=== PATIENT | female | born 1990 | race Caucasian/White ===

== ENCOUNTER 2016-12-05 09:19 | Emergency (ER) | payer MEDICAID ==
[~2016-12-05] VITALS: Ht 162.6 cm; Wt 100.0 kg
[~2016-12-05 09:19] MED LIST: FERR-43 PO; FOLI-43 PO; PREN-88 PO
[2016-12-05] MEDS ORDERED: KETOROLAC 30MG/ML VIAL IV STA (10:41)
[2016-12-05] MEDS ORDERED: ONDANSETRON HCL 4MG/2ML VIAL IV STA (10:41)
[2016-12-05] MEDS ORDERED: FAMOTIDINE 20MG/2ML VIAL IV STA (10:41)
[2016-12-05] MEDS ORDERED: SODIUM CHLORIDE 0.9% 1,000 ML IV ONE (10:41)
[2016-12-05 11:01] LABS: CLARITY URINE CLEAR (CLEAR); COLOR URINE YELLOW (YELLOW); GLUCOSE URINE NEGATIVE (NEGATIVE); KETONES URINE NEGATIVE (NEGATIVE); LEUKOCYTE ESTERASE URINE NEGATIVE (NEGATIVE); NITRITE URINE NEGATIVE (NEGATIVE); OCCULT BLOOD URINE 2+ (NEGATIVE); PH URINE 7.5 (4.5-8.0); PROTEIN URINE NEGATIVE (NEGATIVE); SPECIFIC GRAVITY URINE 1.019 (1.005-1.030); UROBILINOGEN URINE 0.2 E.U./dL (0.2-1.0)
[2016-12-05 11:01] LABS: BASOPHILS % 0.6 % (0.0-2.0); EOSINOPHILS % 4.2 % (0.0-5.0); HEMATOCRIT. 37.5 % (36.0-48.0); HEMOGLOBIN. 12.4 g/dL (12.0-16.0); LYMPHOCYTES % 23.6 % (20.0-50.0); MEAN CORPUSCULAR VOLUME 78.6 fL (81.0-99.0); MEAN PLATELET VOLUME 7.9 fl (7.4-10.4); MONOCYTES % 5.3 % (2.0-8.0); NEUTROPHILS % 66.3 % (40.0-76.0); PLATELET 293 x1000/uL (130-400); RED BLOOD CELL COUNT 4.77 mill/uL (4.2-5.4); RED CELL DISTRIBUTION WIDTH 14.9 % (11.6-14.6)
[2016-12-05 11:07] LABS: CHLORIDE 106 mEq/L (98-107)
[2016-12-05 11:13] VITALS: BP 132/72
[2016-12-05 11:15] LABS: CARBON DIOXIDE 27 mEq/L (21-32)
== END 2016-12-05 12:46 | disposition home or self-care (01) ==
LOC: ER 10:06
DX: J03.90 Acute tonsillitis, unspecified (principal); R11.2 Nausea with vomiting, unspecified; F17.200 Nicotine dependence, unspecified, uncomplicated
CPT/HCPCS: 36415; 80053; 81001; 81025; 83690; 85025; 87070; 87430; 96361; 96374; 96375; 99284; J1885; J2405; J3490; J7030

== ENCOUNTER 2016-12-07 04:25 | Emergency (ER) | payer MEDICAID ==
[~2016-12-07] VITALS: Ht 162.6 cm; Wt 100.0 kg
[2016-12-07] MEDS ORDERED: PREDNISONE 20MG TABLET PO ONE (05:00)
[2016-12-07] MEDS ORDERED: AZITHROMYCIN 250 MG TABLET PO ONE (05:00)
[2016-12-07] MEDS ORDERED: IBUPROFEN 400MG TABLET PO ONE (06:15)
[2016-12-07 06:36] VITALS: BP 122/81
== END 2016-12-07 06:42 | disposition home or self-care (01) ==
LOC: ER 04:36
DX: J06.9 Acute upper respiratory infection, unspecified (principal); R07.2 Precordial pain; R11.2 Nausea with vomiting, unspecified; F17.200 Nicotine dependence, unspecified, uncomplicated
CPT/HCPCS: 71010; 81025; 93005; 99284; J7512; Z7610

== ENCOUNTER 2020-12-15 22:06 | Emergency (ER) | payer MEDICAID, OTHER ==
[~2020-12-15] VITALS: Ht 162.6 cm; Wt 100.0 kg
[2020-12-15] MEDS ORDERED: OXYMETAZOLINE HCL NASAL SPRAY 15ML BOTHNSTRLS SCH (22:45)
[2020-12-15] MEDS ORDERED: KETOROLAC 60MG/2ML VIAL IM ONE (22:45)
[2020-12-16 02:28] VITALS: BP 136/66
[2020-12-16] MEDS ORDERED: KETOROLAC 60MG/2ML VIAL IM NR (02:30)
== END 2020-12-16 03:40 | disposition home or self-care (01) ==
LOC: ER 22:06
DX: J02.9 Acute pharyngitis, unspecified (principal); Z20.822 Contact with and (suspected) exposure to COVID-19
CPT/HCPCS: 81025; 87070; 87430; 96372; 99283; J1885